=== PATIENT | male | born 1995 ===

== ENCOUNTER 2021-09-29 06:02 | Emergency (ER) | payer OTHER ==
[2021-09-29 06:18] VITALS: BP 134/63
[2021-09-29 07:24] LABS: BASOPHILS # (AUTO) 0.1 10^3/uL (0.0-0.1); BASOPHILS % (AUTO) 0.5 %; EOSINOPHILS # (AUTO) 0.4 10^3/uL (0.0-0.7); EOSINOPHILS % (AUTO) 3.2 %; HCT - HEMATOCRIT 40.1 % (42.0-52.0); HGB - HEMOGLOBIN 13.1 g/dL (14.0-18.0); LYMPHOCYTES # (AUTO) 0.9 10^3/uL (1.5-3.5); LYMPHOCYTES % (AUTO) 6.9 %; MEAN CORPUSCULAR HEMOGLOBIN 30.3 pg (27.0-31.0); MEAN CORPUSCULAR HGB CONC 32.7 g/dL (32.0-36.0); MEAN CORPUSCULAR VOLUME 92.8 fL (80.0-94.0); MEAN PLATELET VOLUME 9.1 fL (7.4-11.4); MONOCYTES # (AUTO) 0.7 10^3/uL (0.0-1.0); MONOCYTES % (AUTO) 5.8 %; NEUTROPHILS # (AUTO) 10.2 10^3/uL (1.5-6.6); NEUTROPHILS % (AUTO) 80.5 %; PLT - PLATELET COUNT 356 10^3/uL (130-450); RED BLOOD COUNT 4.32 10^6/uL (4.70-6.10); RED CELL DISTRIBUTION WIDTH 12.6 % (12.0-15.0); WHITE BLOOD COUNT 12.7 x10^3/uL (4.8-10.8)
[2021-09-29 07:33] LABS: BILIRUBIN,TOTAL 0.5 mg/dL (0.2-1.0); CALCIUM 9.4 mg/dL (8.5-10.3); CREATININE 0.7 mg/dL (0.6-1.2); POTASSIUM 4.3 mmol/L (3.5-5.0)
[2021-09-29 07:34] LABS: ALBUMIN 3.7 g/dL (3.2-5.5); ALBUMIN/GLOBULIN RATIO 0.8 (1.0-2.2); TOTAL PROTEIN 8.2 g/dL (6.7-8.2)
[2021-09-29 08:36] LABS: BILIRUBIN,URINE NEGATIVE (NEGATIVE); GLUCOSE, URINE (UA) NEGATIVE (NEGATIVE); KETONES,URINE (UA) NEGATIVE (NEGATIVE); LEUKOCYTE ESTERASE, URINE NEGATIVE (NEGATIVE); NITRITE,URINE NEGATIVE (NEGATIVE); OCCULT BLOOD,URINE SMALL (NEGATIVE); PROTEIN,URINE NEGATIVE (NEGATIVE); UROBILINOGEN,URINE 0.2 (NORMAL) E.U./dL (NORMAL)
[2021-09-29 08:43] LABS: CLARITY,URINE CLEAR (CLEAR)
[2021-09-29 09:01] LABS: BACTERIA,URINE Rare /HPF (None Seen); RBC,URINE 0-5 /HPF (0-5); SQUAMOUS EPITHELIAL CELL,UR NONE SEEN (<= Few); WBC,URINE 0-3 /HPF (0-3)
--- NOTE | 2021-09-29 09:49 | ED Physician Documentation ---
PD HPI ABD PAIN - Stated complaint Stated Complaint: ABD PAIN - Chief complaint Chief Complaint: Abd Pain - History obtained from History obtained from: Patient - Additional information Additional information: Patient is a 26-year-old male with no significant past medical history presenting for left upper quadrant pain x2 days. He reports it is sharp dull at times. It is intermittent and worse after eating and at night. Nothing makes it better or worse. Does not radiate elsewhere. He did take 1 dose of Tylenol without improvement. He has had alcohol use this weekend. He has no nausea or vomiting. He has had normal bowel movements. He denies fever, cough or congestion. Denies dysuria or hematuria. Review of Systems Constitutional: denies: Fever Nose: denies: Congestion Cardiac: denies: Chest pain / pressure Respiratory: denies: Dyspnea, Cough GI: reports: Abdominal Pain. denies: Nausea, Vomiting : denies: Dysuria, Hematuria Musculoskeletal: denies: Back pain Neurologic: denies: Headache PD PAST MEDICAL HISTORY - Present Medications Home Medications: Ambulatory Orders Medication Instructions Recorded Confirmed Sertraline [Zoloft] 20 mg PO DAILY 09/29/21 09/29/21 - Allergies Allergies/Adverse Reactions: Allergies Allergy/AdvReac Type Severity Reaction Status Date / Time ibuprofen AdvReac Unknown Verified 09/29/21 06:14 PD ED PE NORMAL - General General: Alert and oriented X 3, No acute distress, Well developed/nourished - HEENT HEENT: Atraumatic, Moist mucous membranes - Neck Neck: Supple, no meningeal sign - Cardiac Cardiac: RRR, No murmur, Strong equal pulses - Respiratory Respiratory: No respiratory distress, Clear bilaterally - Abdomen Abdomen: Normal bowel sounds, Soft, Non distended, Other (Epigastric and right upper quadrant tenderness) - Derm Derm: Warm and dry - Extremities Extremities: No edema - Neuro Neuro: Normal speech Results - Vitals Vitals: Vital Signs - 24 hr 09/29/21 06:14 Temperature 36.6 C Heart Rate 76 Respiratory 16 Rate Blood Pressure 134/63 H O2 Saturation 99 Oxygen O2 Source Room air - Labs Labs: Laboratory Tests 09/29/21 09/29/21 09/29/21 07:17 07:17 07:47 WBC 12.7 H RBC 4.32 L Hgb 13.1 L Hct 40.1 L MCV 92.8 MCH 30.3 MCHC 32.7 RDW 12.6 Plt Count 356 MPV 9.1 Neut # (Auto) 10.2 H Lymph # (Auto) 0.9 L [place] # (Auto) 0.7 Eos # (Auto) 0.4 Baso # (Auto) 0.1 Absolute Nucleated RBC 0.00 Nucleated RBC % 0.0 Sodium 136 Potassium 4.3 Chloride 98 L Carbon Dioxide 29 Anion Gap 9.0 BUN 11 Creatinine 0.7 Estimated GFR (MDRD) 135 Glucose 115 H Calcium 9.4 Total Bilirubin 0.5 AST 16 ALT 14 Alkaline Phosphatase 81 Total Protein 8.2 Albumin 3.7 Globulin 4.5 H Albumin/Globulin Ratio 0.8 L Lipase 28 Urine Color YELLOW Urine Clarity CLEAR Urine pH 7.0 Ur Specific [place] 1.020 Urine Protein NEGATIVE Urine Glucose (UA) NEGATIVE Urine Ketones NEGATIVE Urine Occult Blood SMALL H Urine Nitrite NEGATIVE Urine Bilirubin NEGATIVE Urine Urobilinogen 0.2 (NORMAL) Ur Leukocyte Esterase NEGATIVE Urine RBC 0-5 Urine WBC 0-3 Ur Squamous Epith Cells NONE SEEN Urine Bacteria Rare Ur Microscopic Review INDICATED Urine Culture Comments NOT INDICATED PD MEDICAL DECISION MAKING - ED course Complexity details: reviewed results, re-evaluated patient, d/w patient ED course: Patient evaluated for left upper quadrant tenderness. Mild leukocytosis noted on Labs. CT scan unremarkable. Patient appears comfortable here with no significant pain. Patient resting comfortably through his ED course playing on portable videogame. No vomiting. Discussed possible etiologies of his symptoms and recommend starting on a PPI and close follow-up with primary care doctor. Patient is aware he may need GI referral if his pain continues. Departure - Departure Disposition: 01 Home, Self Care Clinical Impression: Epigastric abdominal pain Condition: Stable Instructions: ED Epigastric Pain [facility] Follow-Up: Yelena Alfaro ARNP [Physician No Access] - Comments: You were evaluated for pain to your upper abdomen. Your labs are reassuring and a CT scan did not find a cause for this pain. The pain could be related to acid reflux or indigestion. You can try taking an [id number]-[id number] PPI such as omeprazole 20 mg twice a day to see if this helps improve your symptoms. Otherwise please establish care with a primary care doctor as you may need further testing including referral to a GI doctor for an upper endoscopy if your symptoms do not improve. If you do not have a primary care provider I have included the information for 1 you can try calling to establish care. If you have any worsening symptoms please consider returning to the emergency department. Discharge Date/Time: 09/29/21 11:09
--- NOTE | 2021-09-29 10:55 | CT Report ---
PROCEDURE: Abdomen/Pelvis WO INDICATIONS: Upper abd pain x 2 days TECHNIQUE: Noncontrast 5 mm thick sections acquired from the diaphragms to the symphysis. 5 mm coronal and sagi ttal reformats were then performed. For radiation dose reduction, the following was used: automated exposure control, adjustment of mA and/or kV according to patient size. COMPARISON: None. FINDINGS: Image quality: Excellent. ABDOMEN: Lung bases: Lung bases are clear. Heart size is normal. Small hiatal hernia. Solid organs: Liver and spleen are normal in size. Gallbladder is normal. Pancreas is normal in co ntours. No adrenal nodules. There is a 3 mm stone in the inferior pole of the left kidney. Kidneys are normal in size, without hy dronephrosis or nephrolithiasis. Peritoneum and bowel: Unenhanced bowel loops demonstrate normal wall thickness and caliber. A few c olonic diverticula present. No needs to suggest acute diverticulitis. Normal appendix. No free fluid or air. Nodes and vessels: No enlarged retroperitoneal or mesenteric lymph nodes. Borderline sized left regine aortic lymph nodes are noted. Aorta and inferior vena cava are normal in caliber. Miscellaneous: No ventral hernias. PELVIS: Genitourinary: Bladder wall thickness is normal. Miscellaneous: No inguinal hernias or adenopathy. Bones: No suspicious bony lesions. No vertebral body compression fractures. IMPRESSION: 1. A cause for upper abdominal pain is not definitively identified. 2. A 3 mm nonobstructive stone in the inferior pole the left kidney. 3. A few colonic diverticula are present. No acute diverticulitis. 4. Small hiatal hernia. Reviewed by: Farida Gutierrez MD on 09/29/2021 10:53 AM PDT Approved by: Farida Gutierrez MD on 09/29/2021 10:53 AM PDT Station ID: [id number]
== END 2021-09-29 11:09 | disposition home or self-care (01) ==
LOC: ED 06:02
DX: R10.13 Epigastric pain (principal)
CPT/HCPCS: 36415; 80053; 81001; 81003; 83690; 85025; 87086; 99282; 99284

== ENCOUNTER 2021-10-28 09:36 | Outpatient (CLI) | payer OTHER ==
[2021-10-28 14:42] LABS: BASOPHILS # (AUTO) 0.1 10^3/uL (0.0-0.1); BASOPHILS % (AUTO) 0.4 %; EOSINOPHILS # (AUTO) 0.6 10^3/uL (0.0-0.7); HCT - HEMATOCRIT 40.7 % (42.0-52.0); HGB - HEMOGLOBIN 12.9 g/dL (14.0-18.0); LYMPHOCYTES # (AUTO) 0.9 10^3/uL (1.5-3.5); LYMPHOCYTES % (AUTO) 7.4 %; MEAN CORPUSCULAR HEMOGLOBIN 29.7 pg (27.0-31.0); MEAN CORPUSCULAR HGB CONC 31.7 g/dL (32.0-36.0); MEAN CORPUSCULAR VOLUME 93.6 fL (80.0-94.0); MEAN PLATELET VOLUME 10.1 fL (7.4-11.4); MONOCYTES # (AUTO) 0.7 10^3/uL (0.0-1.0); MONOCYTES % (AUTO) 6.4 %; NEUTROPHILS # (AUTO) 9.2 10^3/uL (1.5-6.6); NEUTROPHILS % (AUTO) 79.8 %; PLT - PLATELET COUNT 320 10^3/uL (130-450); RED BLOOD COUNT 4.35 10^6/uL (4.70-6.10); RED CELL DISTRIBUTION WIDTH 13.4 % (12.0-15.0); WHITE BLOOD COUNT 11.5 x10^3/uL (4.8-10.8)
[2021-10-28 15:20] LABS: ALBUMIN 3.7 g/dL (3.2-5.5); ALBUMIN/GLOBULIN RATIO 0.9 (1.0-2.2); BILIRUBIN,TOTAL 0.4 mg/dL (0.2-1.0); CALCIUM 9.1 mg/dL (8.5-10.3); CREATININE 0.8 mg/dL (0.6-1.2); POTASSIUM 3.7 mmol/L (3.5-5.0); TOTAL PROTEIN 7.8 g/dL (6.7-8.2)
== END 2021-10-28 09:37 | disposition home or self-care (01) ==
LOC: LAB.S 09:36
PROVIDERS: ATTEND Physician Assistant Medical
DX: R05.8 Other specified cough (principal); R91.8 Other nonspecific abnormal finding of lung field
CPT/HCPCS: 36415; 80053; 85025

== ENCOUNTER 2021-12-09 12:23 | Outpatient (CLI) | payer OTHER | END 2021-12-09 12:24 | disposition home or self-care (01) | LOC: DI 12:23 | PROVIDERS: ATTEND Internal Medicine Hematology & Oncology | DX: C81.90 Hodgkin lymphoma, unspecified, unspecified site (principal); I51.7 Cardiomegaly | CPT/HCPCS: 93306 ==

== ENCOUNTER 2021-12-10 06:27 | Day surgery (SDC) | payer OTHER ==
[2021-12-10] MEDS ORDERED: LACTATED RINGERS 1,000 ML IV ONE ×2 (06:58→08:51)
[2021-12-10] MEDS ORDERED: LIDOCAINE MPF 2%-EPI 1:200000 20 ML VIAL ONE (07:17)
[2021-12-10] MEDS ORDERED: BUPIVACAINE 0.5% PF 30 ML VIAL ONE (07:17)
[2021-12-10] MEDS ORDERED: PROPOFOL 200 MG/20 ML VIAL IVP ONE ×2 (07:19→08:34)
[2021-12-10] MEDS ORDERED: MIDAZOLAM 2 MG/2 ML VIAL ONE (07:21)
[2021-12-10] MEDS ORDERED: LIDOCAINE-MPF 2% 5 ML VIAL ONE (07:21)
--- NOTE | 2021-12-10 07:22 | ANESTHESIA ---
Pre-Anesthesia VS, & Labs - Diagnosis Lymphoma - Procedure port placement Vital Signs: Temp Pulse Resp BP Pulse Ox 36.8 C 65 16 122/68 96 12/10/21 06:44 12/10/21 06:44 12/10/21 06:44 12/10/21 06:44 12/10/21 06:44 Height: 5 ft 11 in Weight (kg): 70.4 kg Body Mass Index: 21.6 BMI Classification: Healthy weight - NPO >8 hours - Lab Results Lab results reviewed: No Home Medications and Allergies Sertraline [Zoloft] 20 mg PO QPM 09/29/21 Allergies/Adverse Reactions: Allergies Allergy/AdvReac Type Severity Reaction Status Date / Time ibuprofen AdvReac vomiting Verified 12/10/21 06:59 Anes History & Medical History - Anesthetic History Anesthesia Complications: reports: No previous complications Family history of Anesthesia Complications: Denies Family history of Malignant Hyperthermia: Denies (well controlled) - Medical History Cardiovascular: reports: None Pulmonary: reports: None Gastrointestinal: reports: GERD Urinary: reports: None Neuro: reports: None Musculoskeletal: reports: Chronic back pain Endocrine/Autoimmune: reports: None Blood Disorders: reports: None Skin: reports: None Smoking Status: Never smoker History of Cancer?: Yes Exam General: Alert, Oriented x3, Cooperative, No acute distress Dental: WNL Mouth Opening: Greater than 4 Fingerbreadths Neck Mobility: Normal Mallampati classification: II Respiratory: Lungs clear Cardiovascular: Regular rate Mental/Cognitive Status: Alert/Oriented X3, Normal for patient Cognitive Status: Within normal limits Plan Anesthesia Type: General Consent for Procedure(s) Verified and Reviewed: Yes Code Status: Attempt Resuscitation ASA classification: 2-Mild systemic disease Is this case an emergency?: No
[2021-12-10] MEDS ORDERED: fentaNYL 100 MCG/2 ML VIAL ONE (07:57)
[2021-12-10] MEDS ORDERED: DEXAMETHASONE 4 MG/ML VIAL ONE (08:12)
[2021-12-10] MEDS ORDERED: ONDANSETRON 4 MG/2 ML VIAL ONE (08:12)
[2021-12-10] MEDS ORDERED: ONDANSETRON 4 MG/2 ML VIAL IVP PRN (08:18)
[2021-12-10] MEDS ORDERED: MORPHINE 2 MG/ML CARPUJECT IVP PRN (08:18)
[2021-12-10] MEDS ORDERED: HYDROmorphone 0.5 MG/0.5 ML SYRINGE IVP PRN (08:18)
[2021-12-10] MEDS ORDERED: fentaNYL 100 MCG/2 ML VIAL IVP PRN (08:18)
[2021-12-10] MEDS ORDERED: ePHEDrine 50 MG/ML VIAL IVP PRN (08:18)
[2021-12-10] MEDS ORDERED: NALOXONE 0.4 MG/ML VIAL IVP PRN (08:18)
[2021-12-10] MEDS ORDERED: ATROPINE ABBOJECT 1 MG/10 ML SYRINGE IVP PRN (08:18)
[2021-12-10] MEDS ORDERED: LIDOCAINE MPF 2%-EPI 1:200000 20 ML VIAL SUBQ ONE ×2 (08:20)
[2021-12-10] MEDS ORDERED: BUPIVACAINE 0.5% PF 30 ML VIAL SUBQ ONE ×2 (08:20)
[2021-12-10] MEDS ORDERED: ceFAZolin 1 GM VIAL ONE (08:24)
[2021-12-10] MEDS ORDERED: ACETAMINOPHEN 325 MG TABLET PO PRN (08:55)
[2021-12-10] MEDS ORDERED: LACTATED RINGERS 1,000 ML IV SCH (09:00)
--- NOTE | 2021-12-10 09:01 | OPERATIVE REPORT ---
Operative Report - General Procedure Date: 12/10/21 Planned Procedure: port a catheter placement Pre-Op Diagnosis: lymphoma Procedure Performed: placement of right internal jugular vein portacatheter with fluoroscopic and ultrasound guidance Post Op Diagnosis: lymphoma - Procedure Note Primary Surgeon: Dr. Jenny Fernandez Anesthesia Technique: General LMA, Local Estimated Blood Loss (mL): 3 Findings: 1. patent R IJ 2. catheter in good position, flushes and draws easily, loaded with heparin Complications: none - Other Other Information/Narrative: The patient was taken to the operative suite and placed in the supine position. Preoperative antibiotics given. MAC anesthesia was induced to the appropriate level of consciousness. An ultrasound was used to verify the right internal jugular vein was widely patent. The patient was then prepped and draped in the usual, sterile fashion. Next, a sterile ultrasound probe was used to visualize the right internal jugular vein local anesthetic was injected into the skin and subcutaneous tissues overlying this vessel and an 11 blade scalpel was used to make a small skin luis alfredo. Next, under direct ultrasound guidance, a Cook needle was used to gain access to the right internal jugular vein. This was successful on the first attempt. There was excellent return of dark red nonpulsatile blood. A guidewire was passed through the Cook needle without resistance. Fluoroscopy was used to verify the position of the wire. Ultrasound was also used to verify the position of the wire. Next, attention was turned to the chest. The location was chosen on the right anterior chest wall for the portacatheter to sit. The skin and subcutaneous tissues in this area were anesthetized with local as was the path which the catheter would follow up to the neck incision. A 15 blade scalpel was used to make a 2 cm incision in the which was carried down through the skin and subcutaneous tissues to the level of the clavipectoral fascia. A pocket was made with blunt dissection to accommodate the port. Port easily fit within the pocket. Two interrupted sutures of 3-0 PDS were placed through the port to tack it to the clavipectoral fascia. These were tied into place and then the port was tunneled from the inferior chest wall incision to the superior neck incision. Next, the catheter was cut to the appropriate length, 24cm, under direct fluoroscopic guidance. A dilator and sheath were passed over the guidewire under direct fluoroscopic guidance and the dilator and guidewire were removed leaving only the breakaway sheath in place. The catheter was passed through the sheath and the sheath was broken away. The catheter was the only thing that remained within the vessel. Fluoroscopy confirmed that the catheter tip was in good position and that there were no kinks at the neck. The catheter flushed and florencia easily. Next, 3-0 Vicryl was used in an interrupted fashion to reapproximate the deep dermal tissues at the chest incision. Then, 4-0 Monocryl was used in an interrupted subcuticular fashion to reapproximate the skin at the neck incision and in a running subcuticular fashion to reapproximate the skin at the chest incision. A sterile dressing of skin glue was placed. The port was flushed with 1.5 mL 1000 units/mL heparinized saline. The patient tolerated the procedure well and there were no complications. A postoperative chest x-ray is pending at this time.
--- NOTE | 2021-12-10 09:18 | XRAY Report ---
PROCEDURE: Chest for Line Placement INDICATIONS: line placement TECHNIQUE: One view of the chest was acquired. COMPARISON: 10/27/2021 FINDINGS: Surgical changes and devices: Right chest wall Port-A-Cath tip is in SVC.. Lungs and pleura: No pleural effusions or pneumothorax. Lungs are clear. Mediastinum: Widened upper mediastinum suspicious for mediastinal lymphadenopathy. Heart size is mil dly enlarged. Bones and chest wall: No suspicious bony lesions. Overlying soft tissues appear unremarkable. IMPRESSION: Right chest wall Port-A-Cath tip is in SVC. Suggestion of extensive mediastinal or hilar lymphadenopa thy. Mild cardiomegaly. No focal infiltrate, pleural effusion or pneumothorax. Reviewed by: Foster Edge MD on 12/10/2021 9:17 AM PDT Approved by: Foster Edge MD on 12/10/2021 9:17 AM PDT Station ID: [id number]
[2021-12-10 10:20] VITALS: BP 116/77
--- NOTE | 2021-12-10 10:24 | ANESTHESIA POST OP EVALUATION ---
Anesthesia Post Eval - Post Anesthesia Eval Vitals: Last Vital Signs Temp 37 C 12/10/21 10:00 Pulse 74 12/10/21 10:00 Resp 16 12/10/21 10:00 BP 116/77 12/10/21 10:00 Pulse Ox 97 12/10/21 10:00 CV Function Including HR & BP: Stable Pain Control: Satisfactory Nausea & Vomiting: Negative Mental Status: Baseline Respiratory Status: Airway Patent Hydration Status: Satisfactory Anesthesia Complications: None
--- NOTE | 2021-12-10 16:37 | XRAY Report ---
PROCEDURE: OR Port-A-Cath INDICATIONS: PORTACATH PLACEMENT TECHNIQUE: 2 intraoperative fluoroscopic images of right upper chest were obtained. COMPARISON: Chest radiograph dated 10/27/2021 and 12/10/2021.. FINDINGS: Intraoperative fluoroscopic images shows right chest wall Port-A-Cath tip projecting in the region of SVC. IMPRESSION: Fluoroscopy guidance was provided intraoperatively for right chest wall Port-A-Cath placement. Reviewed by: Foster Edge MD on 12/10/2021 4:35 PM PDT Approved by: Foster Edge MD on 12/10/2021 4:35 PM PDT Station ID: [id number]
== END 2021-12-10 06:28 | disposition home or self-care (01) ==
LOC: SDS 06:27
PROVIDERS: ATTEND Surgery
DX: C85.90 Non-Hodgkin lymphoma, unspecified, unspecified site (principal)
CPT/HCPCS: 36561; C1788; J7120

== ENCOUNTER 2022-08-09 07:31 | Outpatient (CLI) | payer OTHER ==
[2022-08-09] MEDS ORDERED: LIDOCAINE-MPF 1% 5 ML VIAL ONE (08:04)
[2022-08-09] MEDS ORDERED: MIDAZOLAM 2 MG/2 ML VIAL ONE (08:29)
[2022-08-09] MEDS ORDERED: fentaNYL 100 MCG/2 ML VIAL ONE (08:29)
[2022-08-09] MEDS ORDERED: fentaNYL 100 MCG/2 ML VIAL IVP ONE (09:10)
[2022-08-09] MEDS ORDERED: MIDAZOLAM 2 MG/2 ML VIAL IVP ONE (09:10)
[2022-08-09] MEDS ORDERED: fentaNYL 100 MCG/2 ML VIAL IVP SCH (09:10)
[2022-08-09] MEDS ORDERED: LACTATED RINGERS 1,000 ML IV ONE (09:39)
--- NOTE | 2022-08-09 10:24 | CT Report ---
PROCEDURE: CT Scan for Needle Biopsy Sedation analgesia for 30 minutes. INDICATIONS: HODGKINS LYMPHOMA TECHNIQUE: The indications, alternatives, benefits, risks, and possible complications of the procedure were comm unicated to the patient. Informed written consent from the patient was obtained and placed in the art. Continuous EKG and hemodynamic monitoring was started by trained personnel. For radiation dose reduction, the following was used: automated exposure control, adjustment of mA and/or kV according to patient size. The patient was brought to the CT suite and manager enterprise content management spiral CT imaging was performed with localization g rid. The appropriate site for percutaneous access to the biopsy target was marked, was prepped and d raped sterilely, and was infused with local anaesthesia. Under CT guidance, a core biopsy trocar and needle set was advanced to the biopsy target, and specimen(s) were obtained. The trocar and needle were then removed, and the patient was sent for post-procedure monitoring. COMPARISON: Outside PET/CT 07/16/2022 FINDINGS: Biopsy site: Left subpectoral lymph node. Needle: 18 gauge biopsy needle with introducer trocar. Number of passes: 5 Medications: 1% lidocaine for local anaesthesia. IV Fentanyl and Versed for conscious sedation for 30 minutes (see nursing record). Complications: None. IMPRESSION: Successful CT-guided biopsy of left subpectoral lymph node. Reviewed by: Thomas England MD on 08/09/2022 10:23 AM PDT Approved by: Thomas England MD on 08/09/2022 10:23 AM PDT Station ID: [id number]
--- NOTE | 2022-08-09 10:37 | CT Report ---
PROCEDURE: CT Scan for Needle Biopsy Sedation analgesia for 30 minutes. INDICATIONS: HODGKINS LYMPHOMA TECHNIQUE: The indications, alternatives, benefits, risks, and possible complications of the procedur e were communicated to the patient. Informed written consent from the patient was obtained and placed in the chart. Continuous EKG and hemodynamic monitoring was started by trained personnel. For radiat ion dose reduction, the following was used: automated exposure control, adjustment of mA and/or kV ac cording to patient size. The patient was brought to the CT suite and audio production engineer spiral CT imaging was per formed with localization grid. The appropriate site for percutaneous access to the biopsy target was marked, was prepped and draped sterilely, and was infused with local anaesthesia. Under CT guidance, a core biopsy trocar and needle set was advanced to the biopsy target, and specimen(s) were obtained. The trocar and needle were then removed, and the patient was sent for post-procedure monitoring. COMPARISON: Outside PET/CT 07/16/2022 FINDINGS: Biopsy site: Left subpectoral lymph node. Needle: 18 gauge biopsy needle with introducer trocar. Number of passes: 5 Medications: 1% lidocaine for local anaesthesia. IV Fentanyl and Versed for consc ious sedation for 30 minutes (see nursing record). Complications: None. IMPRESSION: Successful CT-guided biopsy of left subpectoral lymph node. Reviewed by: Thomas England MD on 08/09/2022 10:35 AM PDT Approved by: Thomas England MD on 08/09/2022 10:35 AM PDT Station ID: [id number]
[2022-08-09 11:14] VITALS: BP 118/77
== END 2022-08-09 07:32 | disposition home or self-care (01) ==
LOC: DI 07:31
PROVIDERS: ATTEND Internal Medicine Hematology & Oncology
DX: C81.74 Other Hodgkin lymphoma, lymph nodes of axilla and upper limb (principal)
CPT/HCPCS: 20206; 85610; 85730

== ENCOUNTER 2022-08-18 10:27 | Outpatient (CLI) | payer OTHER | END 2022-08-18 10:28 | disposition home or self-care (01) | LOC: DI 10:27 | PROVIDERS: ATTEND Internal Medicine Hematology & Oncology | DX: C81.90 Hodgkin lymphoma, unspecified, unspecified site (principal) | CPT/HCPCS: 93306 ==

== ENCOUNTER 2022-10-22 10:44 | Emergency (ER) | payer OTHER ==
--- NOTE | 2022-10-22 11:04 | ED Physician Documentation ---
PD HPI SKIN - Stated complaint Stated Complaint: MALE - Chief complaint Chief Complaint: Wound - History obtained from History obtained from: Patient - History of Present Illness Timing - onset: How many weeks ago (has had areas of redness and induration bilateral inguinal and thigh areas subsequent to chemotherapy 3 weeks ago. Onset of sores 2 1/2 weeks ago. Having more swelling/redness/tender left inguinal area the past 4-5 days.) Timing - duration: Weeks Timing - details: Gradual onset, Still present Location: Other (left inguinal area mainly) Associated symptoms: No: Fever, Myalgias Similar symptoms before: Has not had sx before Recently seen: Clinic (seen at [facility] by Dr. Chung, Oncology, today and referred to ER for question of I&D of small abscess.) Review of Systems Constitutional: denies: Fever, Chills Skin: reports: Lesions Musculoskeletal: denies: Neck pain, Back pain PD PAST MEDICAL HISTORY - Past Medical History Cardiovascular: None Respiratory: None Neuro: None Endocrine/Autoimmune: None GI: None : None HEENT: None Psych: Depression, Anxiety Musculoskeletal: None Derm: None - Present Medications Home Medications: Ambulatory Orders Medication Instructions Recorded Confirmed Sertraline [Zoloft] 50 mg PO QPM #90 tablet 07/30/22 10/22/22 Mupirocin 2% Oint [Bactroban 2% 1 applic TOP TID #15 gm 10/22/22 Oint] Sulfamethox/Trimeth 800/160 1 each PO BID #14 tablet 10/22/22 [Bactrim Ds 800/160] - Allergies Allergies/Adverse Reactions: Allergies Allergy/AdvReac Type Severity Reaction Status Date / Time fosaprepitant AdvReac Respiratory Verified 10/22/22 11:02 ibuprofen AdvReac vomiting Verified 10/22/22 11:02 - Social History Smoking Status: Never smoker PD ED PE NORMAL - Vitals Vital signs reviewed: Yes - General General: Alert and oriented X 3, Well developed/nourished - Derm Derm: Normal color, Warm and dry - Extremities Extremities: Other (bilateral inguinal areas with skin redness and patchy induration. Left inguinal area with 1x3 cm area that is softer/fluctuant, raised, tender and red. ) - Neuro Neuro: No motor deficit, No sensory deficit Results - Vitals Vitals: Vital Signs - 24 hr 10/22/22 10/22/22 10:56 12:04 Temperature 36.6 C Heart Rate 57 L 63 Respiratory 15 18 Rate Blood Pressure 115/67 113/70 O2 Saturation 99 100 Oxygen O2 Source Room air PD Medical Decision Making - ED course Complexity details: considered differential, d/w patient ED course: The patient has had irritated skin in the inguinal and thigh areas which she states is a side effect to chemotherapy medication he had. The left inguinal area now has swelling and tenderness. He states there is been some slight drainage. He was seen in the MAC clinic by his oncologist today who felt there may be an area that needed draining. Referred to the ER for I&D evaluation. The area does have some tenderness. The left inguinal area has several areas of some mild redness and induration with mild tenderness. There are some present on the right as well. The main area in question is left inguinal crease with a localized swelling approximately 1 x 3 cm that is raised above the level of the skin. Mild softness or fluctuance is felt. However bedside ultrasound showed inflammation of the area without any localized fluid pocket. There was a small fluid pocket lateral to that closely adjacent to the femoral vessels. This was still only 1 cm diameter area of fluid with surrounding inflammation. I did not see obviously drainable abscess or fluid loculation. We can treat with antibiotics and see the degree of improvement with that alone. Departure - Departure Disposition: 01 Home, Self Care Clinical Impression: Skin infection Condition: Stable Record reviewed to determine appropriate education?: Yes Instructions: ED Staph Infec Abx Tx Only Follow-Up: Elaina Conway MD [Provider Admit Priv/Credential] - Prescriptions: Sulfamethox/Trimeth 800/160 [Bactrim Ds 800/160] 1 each PO BID #14 tablet Mupirocin 2% Oint [Bactroban 2% Oint] 1 applic TOP TID #15 gm Comments: The bedside ultrasound did not show an obvious drainable target at this point. There is inflammation through the main areas. There was a small pocket of fluid about 1 cm near the femoral vessels. At this point it seems small enough to go with antibiotics only and see if this resolves/improves. Bactrim antibiotic twice daily for the next week. You can also use topical mupirocin antibiotic in the area as well. Follow-up with your oncologist as planned. Recheck or follow-up if worsening degree of tenderness or swelling in the area. I sent your prescription to [facility] in [place]. Forms: PCP List Discharge Date/Time: 10/22/22 12:09
[2022-10-22] MEDS ORDERED: SULFAMETH/TRIMETH DS 800/160 MG TABLET PO STA (11:36)
[2022-10-22 12:06] VITALS: BP 113/70
== END 2022-10-22 12:09 | disposition home or self-care (01) ==
LOC: ED 10:44
DX: L08.9 Local infection of the skin and subcutaneous tissue, unspecified (principal); Z79.899 Other long term (current) drug therapy
CPT/HCPCS: 99282; 99284

== ENCOUNTER 2023-11-08 08:00 | Outpatient (CLI) | payer OTHER | END 2023-11-08 23:59 | disposition home or self-care (01) | LOC: LAB.S 08:00 | PROVIDERS: ATTEND Physician Assistant Medical | DX: J02.9 Acute pharyngitis, unspecified (principal) | CPT/HCPCS: 87070 ==